=== PATIENT | male | born 2000 | race African-American/Black ===

== ENCOUNTER 2023-07-13 13:33 | Emergency (ER) | payer OTHER ==
[~2023-07-13] VITALS: Ht 203 cm; Wt 126.0 kg
--- NOTE | 2023-07-13 14:10 | ED Head Injury ---
General Chief Complaint: Head/Cervical Problems Stated Complaint: CONCUSSION 3-4 DAYS AGO | Nursing Triage Note: PT STATES HE WAS AT [employer], HE WENT TO BLOCK A SHOT WHEN HE FELL BACKWARDS AND HIT HIS HEAD. HE BELIEVES HE MAY HAVE INJURED HIS NECK AND SHOULDERS WELL. PT STATES THIS HAPPENED ON TUESDAY Source: patient Exam Limitations: no limitations History of Present Illness Date Seen by Provider: Jul 13, 2023 Time Seen by Provider: 13:53 Initial Comments 22-year-old male presents to the ER with reports of a head injury on , 07/07/2023. Patient reports he was playing basketball, he was hit in the legs and fell hitting the posterior portion of his head and neck. Patient states he had a positive loss of consciousness, patient's teammate stated that he was not responding at first after the injury. Patient reports feeling as though his symptoms have gotten worse since . Reports headache, mild dizziness, difficulty focusing his eyes. The team doctor, Dr. Scales, suggested he come to the hospital for a scan of his head since his symptoms are getting worse. Dr. Lama has not seen the patient yet. He denies nausea or vomiting. Allergies and Home Medications Patient Home Medication List Home Medication List Reviewed: Yes Review of Systems Review of Systems Constitutional: see HPI Physical Exam Vital Signs Vital Signs - First Documented 07/13/23 07/13/23 13:49 15:15 Temp 37.1 Pulse 51 Resp 16 B/P (MAP) 140/90 (107) Pulse Ox 96 O2 Delivery Room Air Capillary Refill : Less Than 3 Seconds Height, Weight, BMI Height: '" Weight: lbs. oz. kg; 30.00 BMI Method: General Appearance: WD/WN, no apparent distress HEENT: PERRL/EOMI, TMs normal Neck: full range of motion, supple, normal inspection, tender midline Cardiovascular: regular rate, rhythm Respiratory: lungs clear, normal breath sounds, no respiratory distress, no accessory muscle use Extremities: normal range of motion, normal inspection Psychiatric: alert, oriented x 3 Crainal Nerves: normal hearing, normal speech, PERRL Motor/Sensory: no motor deficit, no sensory deficit Skin: normal color, warm/dry Progress/Results/Core Measures Results/Orders My Orders Vital Signs/I&O Blood Pressure Mean: 107 Progress Progress Note : Progress Note Patient seen and evaluated, resting comfortably in bed, no acute distress. Based on exam and symptoms, this is likely a concussion, but will order a CT of the head and neck due to continued and worsening symptoms as well as midline tenderness in the C-spine. 1505 CT reviewed. Negative for acute intracranial abnormality. Negative for acute C-spine fracture or dislocation. Results discussed with patient. Patient instructed to take Tylenol or ibuprofen as needed for pain. Instructed to avoid activities that cause worsening of symptoms. Patient instructed to follow-up with Dr. Lama and the team trainers to determine when he can go back to play. Discharge instructions and return precautions provided. Departure Impression Primary Impression: Concussion with brief (less than one hour) loss of consciousness Additional Impression: Injury of head and neck Disposition: HOME, SELF-CARE Condition: Stable Departure-Patient Inst. Decision time for Depature: 15:06 Referrals: COURTNEY LAMA MD (PCP/Family) Primary Care Physician Patient Instructions: Concussion, Adult (DC) Add. Discharge Instructions: Follow-up with Dr. Lama or the trainers to determine when you can return to play. You should not return to play until your symptoms are gone. You need to avoid activities that cause worsening of your symptoms. You may take Tylenol or ibuprofen as needed for pain. Return for any new, concerning, or worsening symptoms. All discharge instructions reviewed with patient and/or family. Voiced understanding. Work/School Note: Work Release Form Date Seen in the Emergency Department: Jul 13, 2023 Return to Work: Jul 13, 2023 Restrictions: Need Release from Doctor Restrictions: You need to be released by a physician prior to returning to play. LYNDA CALLES APRN Jul 13, 2023 14:10
--- NOTE | 2023-07-13 14:42 | Diagnostic Imaging Report ---
EXAMINATION: CT head and CT cervical spine without contrast. TECHNIQUE: Multiple contiguous axial images were obtained through the brain and cervical spine without the use of intravenous contrast. Sagittal and coronal reformations through the cervical spine were then performed. All CT scans use one or more of the following dose optimizing techniques: automated exposure control, MA and/or KvP adjustment based on patient size and exam type or iterative reconstruction. HISTORY: Head and neck pain after injury. COMPARISON: None available. FINDINGS: HEAD: The ventricles and sulci are normal. No abnormal attenuation of brain parenchyma is present. No acute intracranial hemorrhage or abnormal extra-axial fluid collections are present. No hyperdense vessel. The calvarium is intact. The mastoid air cells are clear. Mucosal thickening or fluid within the paranasal sinuses. The orbits are normal. C-SPINE: Vertebral body height and alignment are preserved. No acute fracture, dislocation, or destructive osseous process. No significant facet hypertrophy. No significant central canal or neuroforaminal stenosis. The paraspinous soft tissues are normal. The visualized thyroid gland is normal. The visualized lung apices are normal. IMPRESSION: 1. No acute intracranial abnormality. 2. No acute osseous abnormality of the cervical spine. Dictated by: Dictated on workstation # [id number]
[2023-07-13 15:15] VITALS: BP 136/92
== END 2023-07-13 15:15 | disposition home or self-care (01) ==
LOC: ER 13:38
DX: S06.0X1A Concussion with loss of consciousness of 30 minutes or less, initial encounter (principal); S19.9XXA Unspecified injury of neck, initial encounter; W18.30XA Fall on same level, unspecified, initial encounter; W22.8XXA Striking against or struck by other objects, initial encounter; Y93.67 Activity, basketball
CPT/HCPCS: 70450; 72125